=== PATIENT | female | born 1945 | race Caucasian/White ===

== ENCOUNTER 2022-06-14 22:21 | Emergency (ER) | payer MEDICARE, SELFPAY ==
--- NOTE | ~2022-06-14 | CT_ITS ---
EXAMINATION: CT brain wo con DATE: 06/14/2022 22:38 INDICATION: Head injury. TECHNIQUE: Computed tomography (CT) of the head was performed without intravenous contrast. The mA wa s adjusted according to patient size. Iterative reconstruction technique was employed. The dose-lengt h product was 605.33 mGy-cm. COMPARISON: None FINDINGS: There are scattered areas of low attenuation in the cerebral white matter, which is within normal limits for the patient's age. There is no intracranial hemorrhage, acute infarction, or abnorm al intracranial mass lesion. The ventricles are normal in size. 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 There is mild mucosal thickening in the paranasal sinuses. The mastoid air cells are normal. There is a right posterior superior scalp hematoma. IMPRESSION: 1. Normal aging brain. Reviewed, dictated and finalized at location A. [employer]MER IMPRESSION: 1. Normal aging brain.
[2022-06-14 22:27] VITALS: BP 103/52; PULSE 70; RESP 18; TEMP 36.3; O2SAT 98
--- NOTE | 2022-06-14 22:42 | PC.NURSE ---
Per radiology, patient refused CT scan of neck.
--- NOTE | 2022-06-14 23:22 | ED.GENADULT ---
HPI - General Adult General Chief complaint: Head Injury Stated complaint: fall-head injury-intoxicated Time Seen by Provider: 06/14/22 23:10 History of Present Illness HPI narrative: 76-year-old female presented emergency department for evaluation after having a laceration to her head. Patient states that she did drink some alcohol tonight had a fall from bed resulting in a cut to the posterior scalp. Patient denies any loss of consciousness. Head neck CT were ordered when patient was in triage. Patient declined the neck CT. Patient does report some scalp pain but denies any other pain or injury. Related Data Allergies Allergy/AdvReac Type Severity Reaction Status Date / Time adhesive Allergy Verified 02/04/12 14:34 Penicillins Allergy Verified 02/04/12 14:34 Sulfa (Sulfonamide Allergy Verified 02/04/12 14:34 Antibiotics) Review of Systems Review of Systems: CONSTITUTIONAL: Denies fever, chills, or sweats. EYES: Denies visual changes, redness, or discharge. ENT: Denies rhinorrhea, congestion, sore throat, or otalgia. CARDIOVASCULAR: Denies chest pain, palpitations, or edema. RESPIRATORY: Denies cough or dyspnea. GASTROINTESTINAL: Denies abdominal pain, nausea, vomiting, or diarrhea. GENITOURINARY: Denies dysuria or hematuria. SKIN: Scalp laceration MUSCULOSKELETAL: Denies back pain, joint pain, or myalgia. NEUROLOGIC: Denies headache, numbness, or weakness. Exam Narrative: APPEARANCE: Well appearing, no pain, no distress, well-nourished. HEAD: normocephalic, atraumatic. EYES: PERRLA/EOMI, conjunctivae clear. NOSE: Normal no drainage EARS:TMS clear with good light reflex. THROAT: Pharynx clear, no exudate. NECK: Supple. No adenopathy, no masses. RESPIRATORY: Airway patent, respirations nonlabored. Clear to auscultation bilaterally, no rales, rhonchi, wheezing. CARDIOVASCULAR: Regular rate and rhythm without murmurs rubs or gallops. ABDOMINAL: Soft, nontender, nondistended, normal bowel sounds MUSCULOSKELETAL: Moves all extremities. Strength/ROM intact, No edema, No calf tenderness. NEURO: Alert. Cranial nerves II through XII intact. Grossly intact SKIN: Posterior scalp laceration Course Course Emergency Course: Head CT was ordered to rule out subdural hematoma, skull fracture, epidural hematoma. Head CT was negative for acute abnormality. Patient declined the neck CT. Scalp laceration was repaired with florentino. Patient was updated on wound care. All question concerns were addressed. Patient was comfortable to plan for discharge and close follow-up. Vital Signs Vital signs: Vital Signs Temperature 97.3 F L 06/14/22 22:27 Pulse Rate 70 06/14/22 22:27 Respiratory Rate 18 06/14/22 22:27 Blood Pressure 103/52 L 06/14/22 22:27 Pulse Oximetry 98 06/14/22 22:27 Oxygen Delivery Room Air 06/14/22 22:27 Temperature 97.3 F L 06/14/22 22:27 Pulse Rate 70 06/14/22 22:27 Respiratory Rate 18 06/14/22 22:27 Blood Pressure 103/52 L 06/14/22 22:27 Pulse Oximetry 98 06/14/22 22:27 Oxygen Delivery Room Air 06/14/22 22:27 Procedures Laceration Laceration 1: Site: scalp Size (cm): 1 Description: linear Depth: simple, single layer ====== Skin Level ====== Skin layer closed with: florentino Number of sutures: 2 ====== Subcutaneous Layer ====== ====== Muscle Layer ====== ====== Tendon Layer ====== Medical Decision Making Vital Signs Vital Signs: Vital Signs Temperature 97.3 F L 06/14/22 22:27 Pulse Rate 70 06/14/22 22:27 Respiratory Rate 18 06/14/22 22:27 Blood Pressure 103/52 L 06/14/22 22:27 Pulse Oximetry 98 06/14/22 22:27 Oxygen Delivery Room Air 06/14/22 22:27 Temperature 97.3 F L 06/14/22 22:27 Pulse Rate 70 06/14/22 22:27 Respiratory Rate 18 06/14/22 22:27 Blood Pressure 103/52 L 06/14/22 22:27 Pulse Oximetry 98 06/14/22 22:27 Oxygen Delivery Room Air 06/14/22
== END 2022-06-14 23:55 | disposition home or self-care (01) ==
PROVIDERS: Emergency Provider Emergency Medicine; PCP Emergency Medicine
DX: S01.01XA Laceration without foreign body of scalp, initial encounter (principal); W06.XXXA Fall from bed, initial encounter
CPT/HCPCS: 12001; 70450; 99284